=== PATIENT | male | born 1985 | race African-American/Black ===

== ENCOUNTER 2019-11-15 10:20 | Emergency (ER) | payer OTHER ==
[~2019-11-15] VITALS: Ht 198.1 cm; Wt 113.6 kg
[2019-11-15] MEDS ORDERED: BLOOD PRESSURE (10:36)
[2019-11-15] MEDS ORDERED: PROTONIX20 M1 PO ×2 (10:36→11:20)
[2019-11-15] MEDS ORDERED: CHOLESTEROL (10:38)
[2019-11-15 10:46] LABS: HEMATOCRIT 40.5 % (42.0-52.0); HEMOGLOBIN 12.2 g/dL (13.5-18.0); MEAN CELL VOLUME 77 fl (78-100); MEAN CORPUSCULAR HEMOGLOBIN 23 pg (27-31); MEAN CORPUSCULAR HGB CONC 30 g/dL (33-37); MEAN PLATELET VOLUME 11.2 fl (7.4-10.4); PLATELET COUNT 183 K/mm3 (130-400); RED BLOOD COUNT 5.28 M/mm3 (4.20-5.60); RED CELL DISTRIBUTION WIDTH 15.4 % (11.5-14.5); WHITE BLOOD COUNT 6.8 K/mm3 (4.8-10.8)
[2019-11-15 10:53] LABS: ALBUMIN 3.9 g/dL (3.5-5.0)
[2019-11-15 10:54] LABS: CALCIUM 9.2 mg/dL (8.3-10.5)
[2019-11-15 10:56] LABS: TOTAL PROTEIN 6.8 g/dL (6.4-8.3)
[2019-11-15 10:57] LABS: TOTAL BILIRUBIN 0.3 mg/dL (0.2-1.2)
[2019-11-15] MEDS ORDERED: METOPROLOL SUCC25 M1 PO (11:20)
[2019-11-15] MEDS ORDERED: ASPIRIN E.C. 8181 MG PO (11:20)
[2019-11-15 11:29] LABS: LYMPHOCYTE 21 % (20-51); MONOCYTE 14 % (3-10); NEUTROPHILS 53 % (42-75)
[2019-11-15 11:30] LABS: HYPOCHROMIA 1+; MICROCYTOSIS 1+
[2019-11-15 11:33] VITALS: BP 160/80
== END 2019-11-15 11:34 ==
LOC: ED 10:20
PROVIDERS: Nurse Practitioner Primary Care
DX: K21.9 Gastro-esophageal reflux disease without esophagitis (principal); I10 Essential (primary) hypertension; Z48.02 Encounter for removal of sutures; Z87.891 Personal history of nicotine dependence

== ENCOUNTER → 2020-02-06 | Outpatient (CLI) | payer OTHER ==
[2019-12-18 17:27] VITALS: BP 138/78
[~2020-02-06] MED LIST: ASPIRIN E.C. 8181 MG PO; BLOOD PRESSURE; CHOLESTEROL; METOPROLOL SUCC25 M1 PO; PEPCID 20MG TAB20 MG PO; PROTONIX TR40 M1 PO; PROTONIX20 M1 PO; TOPROL XL 25MG25 MG PO
== END ==
LOC: LAB 02-04 15:20
DX: Z20.828 Contact with and (suspected) exposure to other viral communicable diseases (principal)

== ENCOUNTER → 2020-02-18 | Outpatient (CLI) | payer OTHER ==
[2019-12-18 17:27] VITALS: BP 138/78
== END ==
LOC: LAB 13:39
DX: Z20.828 Contact with and (suspected) exposure to other viral communicable diseases (principal)